=== PATIENT | female | born 1980 | race African-American/Black ===

== ENCOUNTER 2017-10-14 11:07 | Emergency (ER) | payer SELFPAY ==
[~2017-10-14] VITALS: Ht 154.9 cm; Wt 63.0 kg
[2017-10-14 12:45] VITALS: BP 129/71
== END 2017-10-14 13:27 | disposition home or self-care (01) ==
LOC: EMS 11:10 → EDBD 11:10 → EMS 13:27
DX: J06.9 Acute upper respiratory infection, unspecified (principal); Z90.710 Acquired absence of both cervix and uterus; Z98.890 Other specified postprocedural states; Z83.3 Family history of diabetes mellitus; Z82.49 Family history of ischemic heart disease and other diseases of the circulatory system
CPT/HCPCS: 99282